=== PATIENT | female | born 1940 | race Caucasian/White ===

== ENCOUNTER 2016-08-19 12:22 | Emergency (ER) | payer MEDICARE ==
[~2016-08-19 12:22] MED LIST: LOSA100T6 PO; OXYC-302 PO
[2016-08-19] MEDS ORDERED: HYDROcodone/APAP 5/325 TABLET ONE (14:13)
[2016-08-22 17:06] LABS: ASPARTATE AMINO TRANSFERASE 14 U/L (15-37); BLOOD UREA NITROGEN 19 mg/dL (7-18)
== END 2016-08-19 16:40 | disposition home or self-care (01) ==
LOC: ED 12:22
DX: R06.00 Dyspnea, unspecified (principal); I10 Essential (primary) hypertension
CPT/HCPCS: 36415; 71010; 80053; 85025; 85379; 93005; 99285